=== PATIENT | male | born 1990 | race American Indian/Alaskan Native ===

== ENCOUNTER 2016-08-12 10:03 | Emergency (ER) | payer SELFPAY ==
--- NOTE | 2016-08-12 14:59 | Emergency Department Report ---
HPI - General Chief Complaint: Urogenital-Male Time Seen by Provider: 08/12/16 14:56 - HPI HPI: Patient is a 26-year-old male presents to ED complaining of penile discharge 5 days. Patient also states that he has been experiencing painful urination. Patient states he did not have any unprotected sexual relations recently. Patient denies fevers/chills/nausea/vomiting/abdominal pain/scrotum or testicle pain. ED Past Medical Hx - Social History Smoking Status: Never Smoker Substance Use Type: None - Medications Home Medications: Home Medications Medication Instructions Recorded Confirmed Last Taken Type Acetaminophen/Codeine [Tylenol #3] 1 tab PO Q6H PRN #12 tab 01/18/16 Unknown Rx Cephalexin [Keflex] 500 mg PO Q12HR #10 cap 01/18/16 Unknown Rx Neomycn/Baci Zn/Pmyx Bs/Pramox 14 gm TP BID PRN #1 oint...g. 01/28/16 Unknown Rx [Triple Antibioti-Pain Rlf Oint] ED Review of Systems ROS: Stated complaint: PAIN WHEN URINATE/PENILE DISCHARGE Other details as noted in HPI Constitutional: denies: chills, fever Eyes: denies: eye pain, eye discharge, vision change ENT: denies: ear pain, throat pain Respiratory: denies: cough, shortness of breath, wheezing Cardiovascular: denies: chest pain, palpitations Endocrine: no symptoms reported Gastrointestinal: denies: abdominal pain, nausea, diarrhea Genitourinary: denies: urgency, dysuria Musculoskeletal: denies: back pain, joint swelling, arthralgia Skin: denies: rash, lesions Neurological: denies: headache, weakness, paresthesias Psychiatric: denies: anxiety, depression Hematological/Lymphatic: denies: easy bleeding, easy bruising Physical Exam - Physical Exam Vital Signs: Vital Signs 08/12/16 10:49 Temperature 98.4 F Pulse Rate 94 H Respiratory 18 Rate Blood Pressure 145/106 O2 Sat by Pulse 99 Oximetry Physical Exam: GENERAL: Alert and oriented x3, no apparent distress, Normal Gait, atraumatic. HEAD: Head is normocephalic and a-traumatic. EYES: Extra ocular muscles are intact. Pupils are equal, round, and reactive to light and accommodation. MOUTH:Mouth is well hydrated and without lesions. Tonsils nonerythematous or swollen, Uvula midline, Tongue not elevated. Mucous membranes are moist. Posterior pharynx clear, no exudate or lesions. Patent airways. NECK: Supple. Non edematous, No carotid bruits. No lymphadenopathy or thyromegaly. LUNGS: Symetrical with respiration, No wheezing, no rales or crackles, CTAB. HEART: S1, S2 present, regular rate and rhythm without murmur, no rubs, no gallops. ABDOMEN: No organomegaly was noted,Positive bowel sounds, soft, and non- distended. . Nontender to palpation on all Quadrants, NO CVA tenderness. UROGENITAL: No scrotal mass, Scrotum non tender to palpation bilaterally, no hernia, no scars or penile discharge. EXTREMITIES/MUSCULOSKELETAL: No cyanosis, clubbing, rash, lesions or edema. Full ROM bilaterally. UE/LE Pulses 2+ bilaterally. LE and UE 5+ strength bilaterally NEUROLOGIC: No focal Deficit, Cranial nerves II through XII are grossly intact. No loss of sensation, No facial droop, PSYCHIATRIC: Mood is congruent with affect, denies suicidal or homicidal ideations. SKIN: Warm and dry, No lesions, No ulceration or induration present. ED Course Vital Signs 08/12/16 10:49 Temperature 98.4 F Pulse Rate 94 H Respiratory 18 Rate Blood Pressure 145/106 O2 Sat by Pulse 99 Oximetry ED Medical Decision Making - Medical Decision Making 26-year-old male presents with urethritis. Vital signs stable. In no acute distress. UA and CT/Gonn ordered. Urinalysis positive for white blood cells, 7.0 red blood cells. Suggestive of urethritis. Patient to receive 1 g of azithromycin, 2 g of metronidazole, 250 mg of Rocephin in ED. Discussed the patient prophylaxis treatment for STD. Discussed with patient to follow-up with department of health for further STD testing. Discussed results with patient. Discussed the patient to follow up with primary care physician as referred. Patient states understanding instructions and will comply to follow-up. Critical care attestation.: If time is entered above; I have spent that time in minutes in the direct care of this critically ill patient, excluding procedure time. ED Disposition Clinical Impression: Urethritis Disposition: DISCHARGED TO HOME OR SELFCARE Is pt being admited?: No Does the pt Need Aspirin: No Condition: Stable Instructions: Nonspecific Urethritis in Men (ED), Sexually Transmitted Diseases (ED), Safe Sex (ED) Referrals: PRIMARY CARE, [Primary Care Provider] - 3-5 Days [facility] [Outside] - 3-5 Days [facility] [Outside] - 3-5 Days [facility] [Outside] - 3-5 Days [facility] [Outside] - 3-5 Days Forms: STI Treatment and Prevention, Work/School Release Form(ED) Time of Disposition: 16:28
[2016-08-12 16:07] LABS: Bilirubin,Urine NEG (Negative); Blood,Urine NEG (Negative); Ketones,Urine NEG (Negative); Leukocyte Esterase,Urine LG (Negative); Mucus,Urine FEW /HPF; Nitrite,Urine NEG (Negative); Urobilinogen,Urine < 2.0 mg/dL (<2.0)
[2016-08-12 16:11] LABS: WBC,Urine > 182.0 /HPF (0.0-6.0)
[2016-08-12] MEDS ORDERED: ZITHROMAX PO ONE (16:17)
[2016-08-12] MEDS ORDERED: FLAGYL PO ONE (16:17)
[2016-08-12] MEDS ORDERED: ROCEPHIN IM ONE (16:17)
[2016-08-12] MEDS ORDERED: XYLOCAINE 1% MPF 5 mL INFILTRATI ONE (16:17)
[2016-08-12 17:00] VITALS: BP 155/91
== END 2016-08-12 17:00 | disposition home or self-care (01) ==
LOC: ED 10:03
DX: N34.2 Other urethritis (principal)
CPT/HCPCS: 81001; 96372; 99282; J0696

== ENCOUNTER 2016-10-14 03:02 | Emergency (ER) | payer SELFPAY ==
[2016-10-14 03:34] VITALS: BP 143/98
--- NOTE | 2016-10-14 06:35 | Emergency Department Report ---
HPI - General Chief Complaint: Earache Time Seen by Provider: 10/14/16 06:13 - HPI HPI: Patient here reported that he has cold symptoms about 2-3 days, postnasal sinus with coughing. He said he is having pain as well as ears and they feel clogged 2 days. Denies any drainage. He said he has chills. He said he tried taking [id number] eardrops without any relief. He reports the pain to the areas is 8 out of 10. Denies any nausea or vomiting. Denies any chest pain or difficulty breathing. Denies any sore throat. ED Past Medical Hx - Past Medical History Previous Medical History?: No - Surgical History Past Surgical History?: No - Family History Family history: no significant - Social History Smoking Status: Current Every Day Smoker Substance Use Type: None - Medications Home Medications: Home Medications Medication Instructions Recorded Confirmed Last Taken Type Acetaminophen/Codeine [Tylenol #3] 1 tab PO Q6H PRN #12 tab 01/18/16 Unknown Rx Cephalexin [Keflex] 500 mg PO Q12HR #10 cap 01/18/16 Unknown Rx Neomycn/Baci Zn/Pmyx Bs/Pramox 14 gm TP BID PRN #1 oint...g. 01/28/16 Unknown Rx [Triple Antibioti-Pain Rlf Oint] Amoxicillin [Amoxicillin TAB] 875 mg PO BID #14 tablet 10/14/16 Unknown Rx Cetirizine HCl [ZyrTEC] 10 mg PO QAM #14 capsule 10/14/16 Unknown Rx Fluticasone [Flonase] 1 spray NS QDAY #1 bottle 10/14/16 Unknown Rx Ibuprofen [Motrin] 600 mg PO Q8H PRN #15 tablet 10/14/16 Unknown Rx ED Review of Systems ROS: Stated complaint: BOTH EARS CLOGGED, PAIN OH FOREHEAD Other details as noted in HPI Comment: All other systems reviewed and negative Constitutional: chills, fever Eyes: denies: eye discharge ENT: ear pain, congestion. denies: throat pain Respiratory: cough. denies: shortness of breath, SOB with exertion, SOB at rest , stridor, wheezing Cardiovascular: denies: chest pain, palpitations, edema, syncope Gastrointestinal: denies: abdominal pain, nausea, vomiting Musculoskeletal: denies: back pain, arthralgia Skin: denies: rash Neurological: denies: headache Physical Exam - Physical Exam Vital Signs: Vital Signs 10/14/16 03:20 Temperature 97.4 F L Pulse Rate 81 Respiratory 20 Rate Blood Pressure 143/98 [Right] O2 Sat by Pulse 99 Oximetry General: This is a 26-year-old male well-nourished well-developed in no acute distress. Physical Exam: Head: Normocephalic atraumatic Mouth: Moist, no pharyngeal exudate or erythema. Uvula is midline and oral airway is patent. No facial swelling. No peritonsillar abscesses. Nose: Congested with erythema to mucosa. Clear Drainage. Maxillary and frontal sinuses nontender to palpate Neck: Supple, no C-spine tenderness, no tracheal deviation. Nontender to palpate. no adenopathy Ears: Bilateral TMs congested with erythema. Bilateral EAC without any redness swelling or drainage. Abdomen: Soft, nontender to palpate in all quadrants, normal bowel sounds in all quadrant and negative CVA tenderness bilaterally. Eyes: Bilateral pupils equal and reactive to light, bilateral EOM intact. Bilateral sclera and conjunctiva without injection. Normal accommodation. No Lungs: Clear to auscultate bilaterally no rhonchi wheezes or rales. Normal work of breathing extremity; No CCE. +2 pulses. No neurovascular compromise Cardiovascular: S1-S2, regular rate rhythm. No murmurs. Skin: clean Dry and intact no rash no lesions Psych: Normal mood and behavior ED Course Vital Signs 10/14/16 03:20 Temperature 97.4 F L Pulse Rate 81 Respiratory 20 Rate Blood Pressure 143/98 [Right] O2 Sat by Pulse 99 Oximetry - Reevaluation(s) Reevaluation #1: 10/14/16 07:06 Patient stable throughout ED stay ED Medical Decision Making - Medical Decision Making ED course:I Discussed the patient that he has upper respiratory infection and also bilateral ear infection. I discussed with him treatment plan and he reports understanding. I Discussed with him that he will need to follow-up with primary care physician in 3-5 days and if he does not have one that he will need to follow-up with outside Medical Center. She given prescription for Zyrtec, Flonase and amoxicillin. Charged home in stable condition Critical care attestation.: If time is entered above; I have spent that time in minutes in the direct care of this critically ill patient, excluding procedure time. ED Disposition Clinical Impression: Upper respiratory infection, acute Otitis media of both ears Qualifiers: Otitis media type: unspecified Chronicity: unspecified Qualified Code(s): H66.93 - Otitis media, unspecified, bilateral Disposition: DISCHARGED TO HOME OR SELFCARE Is pt being admited?: No Does the pt Need Aspirin: No Condition: Stable Instructions: Otitis Media (ED), Upper Respiratory Infection (ED) Additional Instructions: Please increase her fluid intake. Take Antibiotic as prescribed. Prescriptions: Amoxicillin [Amoxicillin TAB] 875 mg PO BID #14 tablet Cetirizine HCl [ZyrTEC] 10 mg PO QAM #14 capsule Fluticasone [Flonase] 1 spray NS QDAY #1 bottle Ibuprofen [Motrin] 600 mg PO Q8H PRN #15 tablet PRN Reason: Pain Referrals: [facility] [Outside] - 3-5 Days PRIMARY CARE,MD [Primary Care Provider] - 3-5 Days Forms: Work/School Release Form(ED)
== END 2016-10-14 07:26 | disposition home or self-care (01) ==
LOC: ED 03:02
DX: H66.93 Otitis media, unspecified, bilateral (principal); J06.9 Acute upper respiratory infection, unspecified; F17.200 Nicotine dependence, unspecified, uncomplicated
CPT/HCPCS: 99282